=== PATIENT | male | born 1980 | race Caucasian/White ===

== ENCOUNTER 2016-07-10 09:33 | Emergency (ER) | payer OTHER ==
[~2016-07-10] VITALS: Ht 190.5 cm; Wt 152.3 kg
[2016-07-10] MEDS ORDERED: SODIUM CHLORIDE FLUSH 10 ML SYR IV PRN (09:55)
[2016-07-10] MEDS ORDERED: KETOROLAC 30 MG/ML (TORADOL) 1 ML VIAL IV ONE (09:55)
[2016-07-10 10:12] LABS: BASOPHILS % (AUTO) 0 % (0-2); EOSINOPHILS # (AUTO) 0.1 10^3uL; EOSINOPHILS % (AUTO) 0 % (0-4); LYMPHOCYTES # (AUTO) 1.6 X10^3; MEAN CORPUSCULAR HEMOGLOBIN 27.7 PG (26.0-34.0); MEAN CORPUSCULAR HGB CONC 34.3 g/dL (31.0-37.0); MEAN CORPUSCULAR VOLUME 81 FL (80-100); MEAN PLATELET VOLUME 10.4 FL (6.0-9.5); MONOCYTES # (AUTO) 0.6 X10^3; MONOCYTES % (AUTO) 5 % (3-11); NEUTROPHILS # (AUTO) 10.5 X10^3; NEUTROPHILS % (AUTO) 82 % (51-67); PLATELET COUNT 235 10^3uL (150-450); WHITE BLOOD COUNT 12.84 10^3uL (4.0-11.0)
[2016-07-10 10:34] LABS: ALBUMIN 4.3 g/dL (3.4-5.0); ANION GAP 15.5 MEQ/L (3-15); CALCULATED IONIZED CALCIUM 3.9 mg/dL (3.8-4.6); TOTAL PROTEIN 7.4 g/dL (6.4-8.5)
[2016-07-10] MEDS ORDERED: HYDROmorphone 1 MG/ML (DILAUDID) SYRINGE IV ONE (11:50)
[2016-07-10] MEDS ORDERED: ONDANSETRON 2 MG/ML (Z0FRAN) 2 ML VIAL IV ONE (11:50)
[2016-07-10 15:27] VITALS: BP 112/57
== END 2016-07-10 13:36 | disposition home or self-care (01) ==
LOC: ED 09:36
DX: J02.9 Acute pharyngitis, unspecified (principal)
CPT/HCPCS: 36415; 80053; 85025; 86140; 86308; 96361; 96374; 96375; 99283; J1170; J1885; J2405; J7030